=== PATIENT | male | born 1950 | race Caucasian/White ===

== ENCOUNTER 2017-03-02 12:33 | Emergency (ER) | payer BC ==
[2017-03-02 15:17] LABS: HEMOGLOBIN 12.4 gm/dl (14.0-17.5); RED BLOOD COUNT 3.94 M/UL (4.20-5.50)
[2017-03-02 15:22] LABS: WHITE BLOOD COUNT 1.5 K/UL (4.5-11.0)
== END 2017-03-02 22:00 | disposition other institution (70) ==
LOC: ER1 12:33
PROVIDERS: Student in an Organized Health Care Education/Training Program
DX: K81.9 Cholecystitis, unspecified (principal); D69.6 Thrombocytopenia, unspecified; I10 Essential (primary) hypertension; E78.5 Hyperlipidemia, unspecified; Z79.899 Other long term (current) drug therapy
CPT/HCPCS: 36415; 71020; 80053; 81001; 82248; 82550; 82553; 83605; 83690; 83874; 84484; 85025; 87086; 93005; 96374; 96375; 99285; J2405; J7030; J7050

== ENCOUNTER 2021-09-05 10:17 | Emergency (ER) | payer MEDICARE ==
[~2021-09-05] VITALS: Ht 177.8 cm; Wt 75.3 kg
== END 2021-09-05 15:26 | disposition home or self-care (01) ==
LOC: ER1 10:17
DX: U07.1 COVID-19 (principal); Z23 Encounter for immunization; I10 Essential (primary) hypertension; Z90.49 Acquired absence of other specified parts of digestive tract; Z88.2 Allergy status to sulfonamides
CPT/HCPCS: 71045; 99284; M0243; U0002